=== PATIENT | male | born 1995 | race Caucasian/White ===

== ENCOUNTER 2019-04-05 21:03 | Emergency (ER) | payer SELFPAY ==
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
--- NOTE | 2019-04-05 22:52 | CR ---
Indication: Pain Technique: Three views of the left wrist Comparison: None available Findings: Bones: Alignment is normal. No fractures or bone lesions. Joint spaces: Unremarkable. Soft tissues: Unremarkable. Impression: Negative. Dictated by Oscar Tanner MD @ 04/05/2019 10:49:39 PM Dictated by: Oscar Tanner MD @ 04/05/2019 22:49:48 (Electronically Signed)
== END 2019-04-05 23:00 | disposition home or self-care (01) ==
LOC: MW.ED 21:03
DX: S69.92XA Unspecified injury of left wrist, hand and finger(s), initial encounter (principal); Z88.0 Allergy status to penicillin; Z88.2 Allergy status to sulfonamides; Z88.8 Allergy status to other drugs, medicaments and biological substances; X58.XXXA Exposure to other specified factors, initial encounter
CPT/HCPCS: 73110-26-LT; 73110-LT; 99282; 99283-25